=== PATIENT | male | born 1960 | race Two or more races ===

== ENCOUNTER → 2024-02-16 | Outpatient (CLI) | payer OTHER, SELFPAY ==
--- NOTE | 2024-02-16 10:10 | XR_ITS ---
EXAMINATION: Cervical spine, 5 views Technique: Cervical spine AP, AP odontoid, lateral, bilateral obliques, 5 views Exam date and time: February 16, 2024 1102 hours Comparison May 24, 2013 INDICATIONS: Neck pain after injury to the head and neck 5 days ago. FINDINGS: Satisfactory alignment cervical vertebral bodies No cervical fracture Early degenerative disc disease C5-C6 Mild to moderate bilateral neural foraminal stenosis C3-C4 Intact odontoid IMPRESSION: No cervical fracture
== END | disposition home or self-care (01) ==
PROVIDERS: PCP Physician Assistant; Referring Provider Family Medicine; Visit Provider Family Medicine
DX: S13.4XXA Sprain of ligaments of cervical spine, initial encounter (principal); X58.XXXA Exposure to other specified factors, initial encounter
CPT/HCPCS: 72050

== ENCOUNTER → 2025-01-03 | Outpatient (CLI) | payer BC, SELFPAY ==
[2025-01-03 10:49] LABS: OBS Performed By LAB; OBS QC OK? Yes
[2025-01-03 13:49] LABS: OBS Developer Expiration Date 2-28-2027; OBS Developer Lot # 4-24-551749; Occult Blood, Stool Positive (Negative); Occult Blood, Stool #2 Positive (Negative); Occult Blood, Stool #3 Positive (Negative)
== END | disposition home or self-care (01) ==
LOC: SLDO 10:39
PROVIDERS: Referring Provider Family Medicine; Visit Provider Family Medicine
DX: Z00.00 Encounter for general adult medical examination without abnormal findings (principal); E55.9 Vitamin D deficiency, unspecified; R30.1 Vesical tenesmus; Z13.0 Encounter for screening for diseases of the blood and blood-forming organs and certain disorders involving the immune mechanism; Z13.220 Encounter for screening for lipoid disorders; Z13.29 Encounter for screening for other suspected endocrine disorder
CPT/HCPCS: 82270